=== PATIENT | female | born 1995 | race Caucasian/White ===

== ENCOUNTER 2023-05-06 23:23 | Emergency (ER) | payer OTHER, SELFPAY ==
[2023-05-06 23:25] VITALS: BP 115/74; PULSE 99; RESP 22; TEMP 37.2; O2SAT 98; BMI 28.5
[2023-05-06 23:37] LABS: Absolute Lymphocyte Count 0.39 X10^3/uL (0.83-4.51); Absolute Neutrophil Count 11.2 X10^3/uL (2.0-7.7); Basophil# 0.03 X10^3/uL; Basophil% 0.2 % (0-1); Eosinophil# 0.17 X10^3/uL; Eosinophils% 1.4 % (0-5); Hematocrit 36.2 % (37-47); Hemoglobin 12.4 g/dL (12.0-15.0); Lymphocyte # 0.39 X10^3/ul (0.83-4.51); Lymphocyte % 3.1 % (19-41); Mean Corp Hgb Conc 34.3 g/dL (32-36); Mean Corpuscular Hgb 29.2 pg (27.0-32.0); Mean Corpuscular Volume 85.4 fL (81-99); Mean Platelet Vol. 9.1 fl (6.2-12.0); Monocyte# 0.66 X10^3/uL; Monocyte% 5.3 % (0-10); NRBC Flagged by Analyzer 0 % (0-5); Neutrophil # 11.19 X10^3/uL (2.7-7.7); Neutrophil % 89.4 % (47-70); POSITIVE DIFFERENTIAL YES; Platelet Count 174 K/mm3 (150-450); Red Blood Count 4.24 M/mm3 (4.2-5.4); White Blood Count 12.5 K/mm3 (4.4-11.0)
[2023-05-06 23:40] LABS: Differential Indicated SCAN CRITERIA MET
[2023-05-06 23:41] LABS: Mucous, Urine 0 SEEN /hpf (<or=2+); Red Blood Cells-Urine 0 SEEN /hpf (0-5); White Blood Cells 0 SEEN /hpf (0-5)
[2023-05-06 23:43] LABS: Color, Urine Yellow (Yellow); Glucose, Dipstick Normal (Normal); Leukocyte Esterase-Dipstick 25 /ul (Negative); Nitrite-Dipstick Negative (Negative); Occult Blood-Urine Negative /ul (Negative); Protein-Dipstick Negative (Negative); Urine Bilirubin Dipstick Negative (Negative); Urine Clarity Clear (Clear); Urine Urobilinogen Normal (Normal)
--- NOTE | 2023-05-06 23:46 | EX.ED.DYSGE1 ---
HPI History of Present Illness Chief Complaint: Numb/Ting Detail of Chief Complaint: Patient does not have numbness or tingling she has total body pain Informant: patient Onset/Context/Timing Onset: Days (Several days) Context: Sudden Onset Timing: Continuous Quality: Pain Location: Total body Current Severity: Moderate Maximum Severity: Severe Worsened by: Nothing Relieved by: Nothing this morning she had diarrhea and subsequently vomiting since seen Associated Symptoms Associated Symptoms: GI Narrative Narrative: Patient is a 27-year-old Ab0 female who is on control and presently menstruating. She was seen earlier today at [facility]. She was told she had hypokalemia. She was prescribed potassium and Flexeril. She apparently was not seen by a physician. Her symptoms started several days ago. She complains of total body pain. States when she gets anxious she has numbness. She does complain of global headache. She denies double vision, blurred vision loss of vision. Denies ringing or ears decreased hearing. She denies upper respiratory symptoms. She states she has had several episodes of diarrhea since this morning. She has vomited twice since she was seen at outside facility. She denies urologic symptoms. She denies paresthesia. She does endorse unintentional weight loss of 100 pounds over 3 years. Prior similar symptoms: Yes Recent Illness/Hospitalization: Yes [facility] Medical History (Updated 05/07/23 @ 00:[address] Mark Anthony Lilly MD) Abnormal weight loss COVID Depression Neck sprain Medical History no medical history no medical history Home Medications montelukast 10 mg tablet 10 mg PO DAILY 05/06/23 [History Last Taken Unknown] sertraline 50 mg tablet 50 mg PO DAILY 05/06/23 [History Last Taken Unknown] Allergy/AdvReac Type Severity Reaction Status Date / Time No Known Allergies Allergy Verified 05/06/23 23:24 Surgical History H/O: Social History (Updated 05/06/23 @ 23:[address] Mark Anthony Lilly MD) household members: spouse and children Smoking Status: Never smoker substance use type: does not use ROS ROS ED Constitutional Constitutional ED: Reports sweats and weight loss; Denies chills, fever(s) or subjective Eyes Eyes: Denies blurry vision, change in vision or diplopia ENT ENT ED: Denies ear pain, rhinorrhea or sore throat Cardiovascular Cardiovascular: Denies chest pain, orthopnea, palpitations or racing heartbeat Respiratory/Chest Respiratory/Chest: Denies cough, dyspnea, dyspnea on exertion or orthopnea Gastrointestinal Gastrointestinal: Reports diarrhea, nausea and vomiting; Denies abdominal pain or melena Genitourinary Genitourinary ED: Denies dysuria, hematuria or urinary frequency Musculoskeletal Musculoskeletal: Reports other Details: Total body aches Integumentary Denies rash Neurologic Neurologic: Reports headache(s); Denies paresthesias Psychiatric Psychiatric: Reports anxiety Endocrine Endocrinology: Denies cold intolerance or heat intolerance Hematologic/Lymphatic Hematologic/Lymphatic: Reports systems reviewed and no addt'l complaints, except as documented and as per HPI EXAM Physical Exam Const Vital Signs: 05/06/23 23:25 05/06/23 23:53 Temperature 98.9 F Temperature Source Oral Pulse Rate 99 104 H Respiratory Rate 22 H 12 Blood Pressure 115/74 116/70 Blood Pressure Mean 87 85 Pulse Ox 98 98 Oxygen Delivery Method Room Air Room Air Positive well nourished and well developed General Appearance ED: well developed and NAD; Negative for cyanotic, diaphoretic or pallor HEENT Reports dry mucous membranes HEENT Narrative: Head is atraumatic normocephalic. Ears are normal. TMs are partially occluded due to cerumen in the external auditory canal. What is visualized is normal. Nares patent. Tongue is slightly dry. Mouth ED: Yes dry mucous membranes Mouth: dry mucous membranes Eyes PERRL and EOMs intact bilaterally Eyes Narrative: Sclera is injected. Patient is tearful. General Eye ED: Negative for pale conjunctiva or scleral icterus Neck no lymphadenopathy, supple and no JVD Chest Wall inspection of chest normal and palpation of chest normal Resp normal respiratory effort and clear to auscultation bilaterally Cardio regular rate, regular rhythm, S1 normal heart sound, S2 normal heart sound and no murmurs GI normal to inspection, nondistended, normoactive bowel sounds, non-tender, non-distended and no masses; Negative for hepatosplenomegaly Back/Spine no CVA tenderness Extremity normal to inspection General Extremety ED: Negative for edema or tenderness General Extremity: Negative for edema Neuro oriented x3, CN's II-XII intact bilaterally and no sensory deficits noted Sensorium / Orientation: alert Psych Mood & Affect: tearful Skin no rashes or lesions noted, no wounds and skin turgor normal General Skin Exam: Negative for jaundice or pallor MDM MDM MDM Narrative Medical decision making narrative: With tensional weight loss and night sweats need to rule out potential malignancy versus autoimmune immune disorder. Inflammatory marker was obtained as well as CBC with differential. Comprehensive metabolic panel was obtained to assess electrolytes, renal function, alkaline phosphatase and calcium. Will review records from outside facility if available. There are no records at [facility] for prior visits or laboratory studies. History & Record Review Additional record(s) reviewed:: Prior outpatient record (Records from [facility] were obtained and reviewed. Patient informed the practitioner that she had weight loss. There is discrepancy regarding contraceptive device location. Patient did have a CPK which was normal. This was obtained because of concern for rhabdomyolysis.) Lab Data Lab results narrative: CBC reveals slight elevation of white count at 12.5. There is 89% neutrophils with no bands. H&H is unremarkable. Indices are normal. UA is positive for ketones and leukoesterase. Micro is pending. Comprehensive metabolic panel is normal. Urine micro is unremarkable. There are 0 RBCs, 0 WBCs with 0-5 epithelial cells and rare bacteria. This is negative for infection. ESR is normal. Patient's white count could be elevated because of the nausea, vomiting and diarrhea due to a viral illness. This potentially would explain her total body aches as well. Of note her potassium is now normal. Labs: Laboratory Results - last 24 hr 05/06/23 05/06/23 23:30 23:35 WBC 12.5 H RBC 4.24 Hgb 12.4 Hct 36.2 L MCV 85.4 MCH 29.2 MCHC 34.3 RDW Std Deviation 40.0 RDW Coeff of Jhonny 13.0 Plt Count 174 MPV 9.1 Immature Gran % (Auto) 0.600 Neut % (Auto) 89.4 H Lymph % (Auto) 3.1 L [place] % (Auto) 5.3 Eos % (Auto) 1.4 Baso % (Auto) 0.2 Absolute Neuts (auto) 11.2 H Absolute Lymphs (auto) 0.39 L Nucleated RBC % 0 ESR 28 Sodium 138 Potassium 3.5 Chloride 105 Carbon Dioxide 23.0 Anion Gap 10 BUN 7 Creatinine 0.61 Estim Creat Clear Calc 121.74 Est GFR (MDRD) Af Amer 152 Est GFR (MDRD) Non-Af 125 BUN/Creatinine Ratio 11.4 Glucose 108 H Calcium 8.7 Total Bilirubin 1.00 AST 18 ALT 18 Alkaline Phosphatase 40 L Total Protein 7.0 Albumin 3.4 Globulin 3.6 Albumin/Globulin Ratio 0.9 Urine Color Yellow Urine Clarity Clear Urine pH 8.0 Ur Specific [place] 1.010 Urine Protein Negative Urine Glucose (UA) Normal Urine Ketones 150 A* Urine Occult Blood Negative Urine Nitrite Negative Urine Bilirubin Negative Urine Urobilinogen Normal Ur Leukocyte Esterase 25 H Urine RBC 0 SEEN Urine WBC 0 SEEN Ur Squamous Epith Cells 0-5 SEEN Urine Bacteria RARE Urine Mucus 0 SEEN Treatment and Re-Evaluation :: Patient was informed of her laboratory results. She was informed that I did obtain records from [facility] and reviewed them and compared results obtained this evening to the results obtained earlier Thursday afternoon. Patient was informed that this most likely represents a viral illness and she may be ill for another 7 to 10 days. Uncertain why she has a significant unintentional weight loss. Since this has occurred over 3-year. This can be followed up with her primary care physician. Discharge Plan Triage Chief Complaint: Numb/Ting ED Provider: Mark Anthony Lilly Dx/Rx/DC Orders Clinical Impression: Nausea vomiting and diarrhea, Generalized body aches, Weight loss, unintentional, Mild dehydration Instructions: ED Viral Syndrome (Adult), ED Vomiting and Diarrhea ... Prescriptions: No Action montelukast 10 mg tablet 10 mg PO DAILY Patient Comments: take 1 tablet by mouth once daily sertraline 50 mg tablet 50 mg PO DAILY Patient Comments: take 1 tablet by mouth once daily Primary Care Provider: DARELL CORDOVA Referrals: [facility] Doctor,Out of [Non-Staff] - 3-5 Days if not improving Activity Restrictions/Additional Instructions: 1. Recommend contacting your doctor for outpatient work-up of your unintentional weight loss 2. Recommend 4 ibuprofen tablets every 8 hours or 2 Aleve tablets every 12 hours for your body aches. 3. You were prescribed Zofran for your nausea and vomiting. 4. Recommend taking Imodium as instructed on the vial for continued diarrhea. 5. Recommend increase fluid intake. Disposition Disposition: Home, Self Care
[2023-05-06 23:53] VITALS: BP 116/70; PULSE 104; RESP 12; O2SAT 98
[2023-05-06 23:53] LABS: ALB/GLOB Ratio 0.9 RATIO (0.9-2.4); AST(SGOT) 18 U/L (15-37); Alanine Aminotransfer ALT/SGPT 18 U/L (13-56); Albumin, Serum 3.4 g/dL (3.2-5.0); Alkaline Phosphatase 40 U/L (45-117); Anion Gap 10 (5-15); BUN 7 mg/dL (7-18); BUN/Creat Ratio 11.4 RATIO (10-20); Calcium,Total 8.7 mg/dL (8.5-10.1); Chloride 105 mmol/L (98-107); Creatinine, Serum 0.61 mg/dL (0.55-1.02); EST Glomerular Filtration Rate 125 mL/min (>60); Est Glom Filt Rate - Afr Amer 152 mL/min (>60); Estimated Creatinine Clearance 121.74 ml/min; Globulin 3.6 g/dL (2.2-4.2); Glucose 108 mg/dL (74-106); Potassium 3.5 mmol/L (3.5-5.1); Sodium Level 138 mmol/L (136-145)
[2023-05-06 23:57] LABS: Ketone-Dipstick 150 mg/dl (Negative)
[2023-05-07 00:01] LABS: Bacteria RARE /hpf (None Seen); Squamous Epithelial Cells - UA 0-5 SEEN /hpf (5-10)
[2023-05-07 00:18] LABS: Erythrocyte Sedimentation Rate 28 mm/hr (0-30)
[2023-05-07 00:33] VITALS: BP 122/73; PULSE 108; RESP 15; O2SAT 97
== END 2023-05-07 00:45 | disposition home or self-care (01) ==
PROVIDERS: Emergency Provider Emergency Medicine; Visit Provider Emergency Medicine
DX: E86.0 Dehydration (principal); R11.2 Nausea with vomiting, unspecified; R19.7 Diarrhea, unspecified; R63.4 Abnormal weight loss; Z79.3 Long term (current) use of hormonal contraceptives; M79.18 Myalgia, other site
CPT/HCPCS: 80053; 81001; 85025; 85652; 99284

== ENCOUNTER 2023-08-06 02:45 | Emergency (ER) | payer OTHER, SELFPAY ==
[2023-08-06 02:47] VITALS: PULSE 98; RESP 18; TEMP 36.9; O2SAT 97; BMI 27.1
--- NOTE | 2023-08-06 02:55 | ED.RN ---
Pt is noticeably anxious and unable to sit still. she is tearful but says its because her anxiety. Pt refusing blood pressure becuause she just cant take it it makes my hand numb. Pt educated but still refuses. mother at bedside.
[2023-08-06] MEDS: 0.9% Normal Saline (1000mL) 1,000 ML 999 ML IV (03:29)
[2023-08-06] MEDS: Haloperidol Lactate 5 MG/ML Vial IV (03:30)
[2023-08-06] MEDS: DiphenhydrAMINE 50 MG/ML Syringe 25 MG IV (03:30)
[2023-08-06 03:34] VITALS: BP 108/90
[2023-08-06 03:38] LABS: Basophil# 0.05 X10^3/uL; Basophil% 0.5 % (0-1); Eosinophil# 0.06 X10^3/uL; Eosinophils% 0.6 % (0-5); Hematocrit 37.5 % (37-47); Hemoglobin 12.6 g/dL (12.0-15.0); Lymphocyte % 6.5 % (19-41); Mean Corp Hgb Conc 33.6 g/dL (32-36); Mean Corpuscular Hgb 28.7 pg (27.0-32.0); Mean Corpuscular Volume 85.4 fL (81-99); Mean Platelet Vol. 9.8 fl (6.2-12.0); Monocyte# 0.92 X10^3/uL; Monocyte% 8.5 % (0-10); NRBC Flagged by Analyzer 0 % (0-5); Neutrophil # 9.01 X10^3/uL (2.7-7.7); Neutrophil % 83.5 % (47-70); Platelet Count 169 K/mm3 (150-450); RBC Distribution Width CV 12.7 % (11.6-14.6); RBC Distribution Width SD 39.3 fl (35.1-43.9); Red Blood Count 4.39 M/mm3 (4.2-5.4); White Blood Count 10.8 K/mm3 (4.4-11.0)
[2023-08-06 03:47] LABS: Internal QC Validated? YES +Cl - CLEAR BKGD; Pregnancy, Serum, hCG Quali. NEGATIVE Negative
[2023-08-06 03:54] LABS: AST(SGOT) 12 U/L (15-37); Alanine Aminotransfer ALT/SGPT 19 U/L (13-56); Alkaline Phosphatase 46 U/L (45-117); Anion Gap 9 (5-15); BUN 15 mg/dL (7-18); BUN/Creat Ratio 21.8 RATIO (10-20); Bilirubin, Direct 0.18 mg/dL (0.00-0.30); Chloride 105 mmol/L (98-107); Creatinine, Serum 0.69 mg/dL (0.55-1.02); EST Glomerular Filtration Rate 109 mL/min (>60); Est Glom Filt Rate - Afr Amer 132 mL/min (>60); Estimated Creatinine Clearance 106.69 ml/min; Globulin 3.8 g/dL (2.2-4.2); Glucose 117 mg/dL (74-106); Lipase 27 U/L (13-75); Magnesium 1.8 mg/dL (1.6-2.6); Potassium 3.2 mmol/L (3.5-5.1); Protein, Total 7.8 g/dL (6.4-8.2); Sodium Level 138 mmol/L (136-145)
--- NOTE | 2023-08-06 04:21 | EX.ED.DYSGE1 ---
HPI History of Present Illness Chief Complaint: Nausea/Vomiting Informant: patient and family Narrative Narrative: Patient is a 28-year-old female with past medical history of anxiety and depression. She states that she was feeling slightly nauseous and then her neck began to hurt and her anxiety elevated and then she developed intractable nausea and vomiting. She states she believes she is thrown up 15-20 times over the course of the day. She states that it was initially just what ever was in her stomach and now is just water/saliva. She denies any loose stool/diarrhea or concern for . She does state that she smokes marijuana multiple times per week. At this time as she cannot get her symptoms under control she presents for evaluation [facility] Medical History Abnormal weight loss COVID Depression Neck sprain Home Medications sertraline 50 mg tablet 100 mg PO DAILY 05/06/23 [History Last Taken Unknown] methocarbamol 500 mg tablet 1,000 mg (2 x 500 mg) PO 4X/DAY PRN PRN Muscle pain/spasm #56 tabs 08/06/23 [Rx Last Taken Unknown] omeprazole 20 mg capsule,delayed release 20 mg PO DAILY 08/06/23 [History Last Taken Unknown] ondansetron 4 mg disintegrating tablet 4 mg PO TID PRN nausea and vomiting #21 tabs 08/06/23 [Rx Last Taken Unknown] Allergy/AdvReac Type Severity Reaction Status Date / Time No Known Allergies Allergy Verified 05/06/23 23:24 Surgical History H/O: Social History (Updated 05/06/23 @ 23:[address] Mark Anthony Lilly MD) household members: spouse and children Smoking Status: Never smoker substance use type: does not use ROS ROS ED Constitutional Constitutional ED: Denies chills or fever(s) Eyes Eyes: Denies change in vision ENT ENT ED: Denies rhinorrhea or sore throat Cardiovascular Cardiovascular: Denies chest pain Respiratory/Chest Respiratory/Chest: Denies cough or dyspnea Gastrointestinal Gastrointestinal: Reports nausea and vomiting; Denies abdominal pain or diarrhea Genitourinary Genitourinary ED: Denies dysuria Musculoskeletal Musculoskeletal: Reports neck pain Integumentary Denies rash Neurologic Neurologic: Reports headache(s) Psychiatric Psychiatric: Reports anxiety Hematologic/Lymphatic Hematologic/Lymphatic: Denies easy bleeding or easy bruising EXAM Physical Exam Const Vital Signs: 08/06/23 02:47 08/06/23 03:34 Temperature 98.4 F Temperature Source Oral Pulse Rate 98 Respiratory Rate 18 Blood Pressure 108/90 H Blood Pressure Mean 96 Pulse Ox 97 Oxygen Delivery Method Room Air Positive well nourished and well developed General Appearance ED: well developed; Negative for pallor HEENT Reports dry mucous membranes HEENT Narrative: Mucous membranes are dry and tacky without tongue or lip swelling airway edema or compromise or secondary changes to suggest infection Mouth ED: Yes dry mucous membranes Mouth: dry mucous membranes Eyes PERRL and EOMs intact bilaterally General Eye ED: Negative for scleral icterus Neck supple Neck Narrative: There is diffuse paracervical tension and spasm noted but no nuchal rigidity or meningeal signs Resp normal respiratory effort and clear to auscultation bilaterally Cardio regular rate and regular rhythm Rate: other Other Details: Radial and carotid pulses equal and symmetric Heart is regular rate and rhythm without murmurs rubs or gallops GI non-distended GI Narrative: Abdomen is soft and nondistended with hyperactive bowel sounds. There is mild diffuse pain on palpation without voluntary guarding or rigidity. Auscultation: hyperactive bowel sounds Palpation: soft Extremity normal to inspection Neuro oriented x3, CN's II-XII intact bilaterally and no sensory deficits noted Neuro Narrative: Cranial nerves II through XII are grossly intact there are no focal neurologic deficits. No pronator drift no dysmetria no truncal ataxia. Sensorium / Orientation: alert Motor Exam: strength 5/5 throughout Psych Psych Narrative: Patient has a nervous/anxious affect Skin no rashes or lesions noted and skin turgor normal General Skin Exam: Negative for jaundice or pallor MDM MDM MDM Narrative Medical decision making narrative: Patient presented to the ER with stable vitals and a soft nonsurgical abdomen. As she reported mild neck pain with bouts of nausea vomiting differential diagnosis is for viral gastroenteritis versus Edwina-Hernandez tear versus cervical strain from retching versus meningitis versus migraine headache. With the significant nature of her vomiting episodes there is also concern for electrolyte derangement/acute kidney injury. Basic labs were obtained and revealed no clinically significant findings. Potassium is slightly down at 3.2 but this is not clinically significant. As patient also reports using marijuana multiple times a week this could be secondary to cannabis hyperemesis syndrome. Patient was given 1 L of fluid as well as Haldol and Benadryl and had complete resolution of symptoms. There is no further bouts of vomiting and she was able to sleep in the ER. On reevaluation abdomen soft and nonsurgical. For at this time with resolution of symptoms and negative workup I do not feel there is need for a CT scan or further evaluation and she is otherwise safe for discharge History & Record Review Discussion w/independent historian: Patient and Family Lab Data Attestation: I reviewed the patient's lab results. Labs: Laboratory Results - last 24 hr 08/06/23 03:30 WBC 10.8 RBC 4.39 Hgb 12.6 Hct 37.5 MCV 85.4 MCH 28.7 MCHC 33.6 RDW Std Deviation 39.3 RDW Coeff of Jhonny 12.7 Plt Count 169 MPV 9.8 Immature Gran % (Auto) 0.400 Neut % (Auto) 83.5 H Lymph % (Auto) 6.5 L [place] % (Auto) 8.5 Eos % (Auto) 0.6 Baso % (Auto) 0.5 Absolute Neuts (auto) 9.0 H Absolute Lymphs (auto) 0.70 L Nucleated RBC % 0 Sodium 138 Potassium 3.2 L Chloride 105 Carbon Dioxide 24.0 Anion Gap 9 BUN 15 Creatinine 0.69 Estim Creat Clear Calc 106.69 Est GFR (MDRD) Af Amer 132 Est GFR (MDRD) Non-Af 109 BUN/Creatinine Ratio 21.8 H Glucose 117 H Calcium 9.0 Magnesium 1.8 Total Bilirubin 0.50 Direct Bilirubin 0.18 AST 12 L ALT 19 Alkaline Phosphatase 46 Total Protein 7.8 Albumin 4.0 Globulin 3.8 Lipase 27 Serum , Qual NEGATIVE Discharge Plan Triage Chief Complaint: Nausea/Vomiting ED Provider: Navdeep Pinto Dx/Rx/DC Orders Clinical Impression: Acute cervical myofascial strain, Anxiety reaction, Mild dehydration, Nausea & vomiting Instructions: ED Anxiety Reaction, ED Dehydration (Adult), ED Vomiting (Adult) Prescriptions: New ondansetron 4 mg tablet,disintegrating 4 mg PO TID PRN (Reason: nausea and vomiting) Qty: 21 0RF methocarbamol 500 mg tablet 1,000 mg PO 4X/DAY PRN PRN (Reason: Muscle pain/spasm) Qty: 56 0RF No Action sertraline 50 mg tablet 100 mg PO DAILY Patient Comments: take 1 tablet by mouth once daily omeprazole 20 mg capsule,delayed release(DR/EC) 20 mg PO DAILY Primary Care Provider: DARELL CORDOVA Referrals: DARELL CORDOVA [Other] Disposition Disposition: Home, Self Care
== END 2023-08-06 04:52 | disposition home or self-care (01) ==
PROVIDERS: Emergency Provider Emergency Medicine; Visit Provider Emergency Medicine
DX: R11.2 Nausea with vomiting, unspecified (principal); F41.1 Generalized anxiety disorder; S16.1XXA Strain of muscle, fascia and tendon at neck level, initial encounter; E86.0 Dehydration; F32.A Depression, unspecified; Z79.899 Other long term (current) drug therapy
CPT/HCPCS: 80048; 80076; 83690; 83735; 84703; 85025; 96361; 96374; 96375; 99283